=== PATIENT | male | born 2000 | race Caucasian/White ===

== ENCOUNTER 2019-10-11 15:51 | Emergency (ER) | payer MEDICARE, OTHER, MEDICAID, SELFPAY ==
[2019-10-11 16:04] VITALS: BP 138/76; PULSE 81; RESP 16; TEMP 37.2; O2SAT 100
--- NOTE | 2019-10-11 16:41 | ED.SKABFB ---
HPI - Skin/Abscess/Foreign Bdy General Chief complaint: Skin/Abscess/Foreign Body Stated complaint: Lump on back Time Seen by Provider: 10/11/19 16:30 Source: patient Mode of arrival: ambulatory Limitations: no limitations History of Present Illness HPI narrative: Sahil Solomon is a 19 yo male with no PMH who comes to the urgent care with a small lesion on his back. He has a small scab across and he is concerned about what it actually is Related Data Home Medications Medication Instructions Recorded Confirmed No Home Medications 10/11/19 10/11/19 Allergies Allergy/AdvReac Type Severity Reaction Status Date / Time No Known Allergies Allergy Verified 10/11/19 15:57 Review of Systems Review of Systems: Narrative: CONSTITUTIONAL: Denies fever, chills, sweats. EYES: Denies visual changes, redness, discharge. ENT: Denies rhinorrhea, congestion, sore throat, otalgia. CARDIOVASCULAR: Denies chest pain, palpitations, edema. RESPIRATORY: Denies dyspnea, wheezing, cough GASTROINTESTINAL: Denies abdominal pain, nausea, vomiting, diarrhea. GENITOURINARY: Denies dysuria, hematuria, abnormal discharge SKIN: Denies rash or itching. Lesion in middle of back NEUROLOGIC: Denies numbness, or focal weakness. PSYCHIATRIC: Denies anxiety or depression. [facility] Family History Family History (Updated 10/11/19 @ 16:43 by Viviana Chavarria CNP) Other No active medical problems Social History Social History (Updated 10/11/19 @ 16:43 by Viviana Chavarria CNP) Smoking status: Current every day smoker Occupation/Education: occupation Gender identity (if verbalized by the patient): Male Comments At time of signature, I agree with nursing past medical, surgical, social and family history. There is no relevant family history pertinent to the presenting complaint. Exam Narrative: Exam Narrative: GENERAL: This is a well-nourished, well-developed patient, in no apparent distress. HEAD: normocephalic, atraumatic. EYES: PERRL. Sclera clear/white. Vision is grossly intact. EARS: External ears normal. Hearing grossly intact. NOSE: External nose normal with no obvious nasal discharge, nares without redness, no rhinorrhea. THROAT: Mucous membranes moist, posterior pharynx clear. NECK: Neck supple, non-tender CARDIOVASCULAR: Regular rate and rhythm without murmurs, gallops, or rubs. RESPIRATORY: Clear to auscultation. Breath sounds equal bilaterally. No wheezes, rales, or rhonchi. GASTROINTESTINAL: Abdomen soft, non-tender, SKIN: warm, intact with no suspicious lesions or rash, good texture and turgor. Small lesion with with scab on top but mildly reddened NEURO: awake, alert, and oriented to person, place and time. There were no obvious focal neurologic abnormalities. Steady gait EXTREMITIES: Normal range of motion. No edema. BACK: Nontender without deformity or crepitance. No flank tenderness. Course Course Emergency Course: Neomycin and Band-Aid placed over lesion; discussed keeping it clean Vital Signs Vital signs: Vital Signs Temperature 99.0 F 10/11/19 16:04 Pulse Rate 81 10/11/19 16:04 Respiratory Rate 16 10/11/19 16:04 Blood Pressure 138/76 10/11/19 16:04 Pulse Oximetry 100 10/11/19 16:04 Temperature 99.0 F 10/11/19 16:04 Pulse Rate 81 10/11/19 16:04 Respiratory Rate 16 10/11/19 16:04 Blood Pressure 138/76 10/11/19 16:04 Pulse Oximetry 100 10/11/19 16:04 MDM - Skin/Abscess/Foreign Bdy Differential Diagnosis Differential diagnosis: Likely abscess of skin or subcutaneous tissue, cellulitis, eczema, contact dermatitis and other Discharge Plan Discharge Clinical Impression: Skin lesion, Skin lesion of back Patient Disposition: Home, Self-Care Condition: Stable Instructions: Abrasion (ED) Prescriptions: No Action No Home Medications RF: 0 Follow-up/Referrals: UNKNOWN,DOCTOR [Primary Care Provider] - Time of Disposition: 16:47
== END 2019-10-11 16:59 | disposition home or self-care (01) ==
PROVIDERS: Emergency Provider Nurse Practitioner
DX: L98.9 Disorder of the skin and subcutaneous tissue, unspecified (principal); F17.200 Nicotine dependence, unspecified, uncomplicated; F84.0 Autistic disorder
CPT/HCPCS: 99211; G0463

== ENCOUNTER 2019-10-31 08:18 | Emergency (ER) | payer MEDICARE, OTHER, MEDICAID, SELFPAY ==
[2019-10-31 08:35] VITALS: BP 122/68; PULSE 75; RESP 18; TEMP 36.3; O2SAT 100
--- NOTE | 2019-10-31 08:35 | ED.ABDPAIN ---
HPI - Abdominal Pain General Chief Complaint: Abdominal Pain Stated Complaint: abd pain Time Seen by Provider: 10/31/19 08:35 Source: patient and RN notes reviewed History of Present Illness HPI narrative: Patient is a 19-year-old male that presents the urgent care with complaints of possible umbilical hernia and abdominal pain. Patient states that he does a lot of heavy lifting at work and believes that he caused the hernia within the last few days. Patient states he woke up this morning with the abdominal pain. States that he does have a history of umbilical hernias and has had approximately 3 operations in the past with the last one being 1 year ago. Patient denies any nausea, vomiting, difficulty with bowel or bladder. No other acute complaints. No acute distress noted. Patient read the plan of care. Related Data Home Medications Medication Instructions Recorded Confirmed No Home Medications 10/31/19 10/31/19 Allergies Allergy/AdvReac Type Severity Reaction Status Date / Time No Known Allergies Allergy Verified 10/31/19 08:40 Review of Systems Review of Systems: Narrative: CONSTITUTIONAL: Denies fever, chills, or sweats. EYES: Denies visual changes, redness, or discharge. ENT: Denies rhinorrhea, congestion, sore throat, or otalgia. CARDIOVASCULAR: Denies chest pain, palpitations, or edema. RESPIRATORY: Denies cough or dyspnea. GASTROINTESTINAL: Reports of a possible abdominal hernia with pain GENITOURINARY: Denies dysuria or hematuria. SKIN: Denies rash or itching. MUSCULOSKELETAL: Denies back pain, joint pain, or myalgia. NEUROLOGIC: Denies headache, numbness, or weakness. All other systems reviewed are negative, except as documented in HPI. PMFSH Family History Family History (Updated 10/11/19 @ 16:43 by Viviana Chavarria CNP) Other No active medical problems Social History Social History (Updated 10/11/19 @ 16:43 by Viviana Chavarria CNP) Smoking status: Current every day smoker Gender identity (if verbalized by the patient): Male Comments At the time of my signature, I reviewed and agree with the nursing past medical, surgical, social, and family history. There is no relevant family history pertinent to the patient complaint. Exam Narrative: Exam Narrative: GENERAL: This is a well-nourished, well-developed patient, in no apparent distress. HEAD: normocephalic, atraumatic. EYES: PERRL. Sclera clear/white. Vision is grossly intact. EARS: External ears normal NOSE: External nose normal with no obvious nasal discharge THROAT: Mucous membranes moist NECK: Neck supple CARDIOVASCULAR: Regular rate and rhythm without murmurs, gallops, or rubs. RESPIRATORY: Clear to auscultation. Breath sounds equal bilaterally. No wheezes, rales, or rhonchi. GASTROINTESTINAL: Abdomen soft, point tenderness to noted umbilical hernia approximately 3 cm to the surface, nondistended. Bowel sounds are active. SKIN: warm, intact with no suspicious lesions or rash, good texture and turgor. NEURO: awake, alert, and oriented to person, place and time. There were no obvious focal neurologic abnormalities. EXTREMITIES: No clubbing, cyanosis, or edema. No joint tenderness, effusion, or edema noted. No calf tenderness. Negative Homans sign bilaterally. BACK: Mild right lumbar tenderness without obvious deformity or crepitus Course Vital Signs Vital signs: Vital Signs Temperature 97.3 F L 10/31/19 08:35 Pulse Rate 75 10/31/19 08:35 Respiratory Rate 18 10/31/19 08:35 Blood Pressure 122/68 10/31/19 08:35 Pulse Oximetry 100 10/31/19 08:35 Temperature 97.3 F L 10/31/19 08:35 Pulse Rate 75 10/31/19 08:35 Respiratory Rate 18 10/31/19 08:35 Blood Pressure 122/68 10/31/19 08:35 Pulse Oximetry 100 10/31/19 08:35 Reviewed MDM - Abdominal Pain MDM Narrative Medical decision making narrative: Advised the patient to avoid heavy lifting, pushing, pulling, strenuous activity. If you develop any inc
--- NOTE | 2019-10-31 08:48 | PC.NURSE ---
0834: Pt states he is still able to have normal BM's and is urinating well.
== END 2019-10-31 08:56 | disposition home or self-care (01) ==
PROVIDERS: Emergency Provider Nurse Practitioner Family
DX: K42.9 Umbilical hernia without obstruction or gangrene (principal); F17.200 Nicotine dependence, unspecified, uncomplicated; F84.0 Autistic disorder
CPT/HCPCS: 99211; G0463

== ENCOUNTER 2019-11-09 08:48 | Emergency (ER) | payer MEDICARE, OTHER, MEDICAID, SELFPAY ==
--- NOTE | 2019-11-09 08:54 | ED.GENADULT ---
HPI - General Adult General Chief complaint: Upper Respiratory Infection Stated complaint: sinus/stuffy nose/cough Time Seen by Provider: 11/09/19 08:54 Source: patient Mode of arrival: ambulatory Limitations: no limitations History of Present Illness HPI narrative: 19-year-old male patient presents to the [facility] with complaints of cold symptoms x2 days. Denies any fever but states he has had a runny nose, postnasal drip and cough with some yellow sputum at times. Patient denies any chest pain, shortness of breath, abdominal pain, nausea, vomiting or diarrhea. Patient states he has tried some Mucinex. Patient states he is here today because his employer is requiring an work note for him. Related Data Home Medications Medication Instructions Recorded Confirmed No Home Medications 10/31/19 10/31/19 Allergies Allergy/AdvReac Type Severity Reaction Status Date / Time No Known Allergies Allergy Verified 11/09/19 09:09 Review of Systems Review of Systems: Narrative: CONSTITUTIONAL: Denies fever, chills, or sweats. EYES: Denies visual changes, redness, or discharge. ENT: Positive rhinorrhea, congestion, denies sore throat, or otalgia. CARDIOVASCULAR: Denies chest pain, palpitations, or edema. RESPIRATORY: Positive cough denies dyspnea. GASTROINTESTINAL: Denies abdominal pain, nausea, vomiting, or diarrhea. GENITOURINARY: Denies dysuria or hematuria. SKIN: Denies rash or itching. MUSCULOSKELETAL: Denies back pain, joint pain, or myalgia. NEUROLOGIC: Denies headache, numbness, or weakness. PSYCHIATRIC: Denies anxiety or depression. [facility] Family History Family History Other No active medical problems Social History Social History Smoking status: Current every day smoker Gender identity (if verbalized by the patient): Male Comments At the time of my signature I agree with nursing past medical history, surgical, social, and family history. There is no relevant family history pertinent to the presenting complaint. Exam Narrative: Exam Narrative: GENERAL: Well-appearing, well-nourished, and in no acute distress. HEAD: Normocephalic, atraumatic. No tenderness noted to frontal maxillary sinuses on palpation EYES: PERRLA and EOMI. ENT: Nares with erythema and edema noted bilaterally, no rhinorrhea or epistaxis. Mucous membranes moist. Posterior pharynx with no erythema, tonsil enlargement, exudates or lesions present. Bilateral TMs are clear with no erythema or foreign bodies in the canal. NECK: Supple. No lymphadenopathy CHEST: Clear to auscultation. No respiratory distress. Patient able talk in clear complete sentences. No tripoding noted. HEART: Regular rate and rhythm. No murmur heard. Normal peripheral pulses. ABDOMEN: Soft, nontender, nondistended, normal active bowel sounds. EXTREMITIES: Normal range of motion. No edema. SKIN: Warm, dry, no rash. NEURO: No focal deficits. Alert and oriented x3. Course Vital Signs Vital signs: Vital Signs Temperature 36.8 C 11/09/19 09:00 Pulse Rate 93 11/09/19 09:00 Respiratory Rate 18 11/09/19 09:00 Blood Pressure 108/66 11/09/19 09:00 Pulse Oximetry 99 11/09/19 09:00 Temperature 36.8 C 11/09/19 09:00 Pulse Rate 93 11/09/19 09:00 Respiratory Rate 18 11/09/19 09:00 Blood Pressure 108/66 11/09/19 09:00 Pulse Oximetry 99 11/09/19 09:00 Vital signs reviewed. Medical Decision Making Differential Diagnosis Differential Diagnosis: Differential diagnosis: Allergic rhinitis, chronic sinusitis, tonsillitis, acute sinusitis, infectious mononucleosis, seasonal influenza, pertussis, diphtheria, meningococcal disease, viral syndrome, viral bronchitis, RSV. Discussed with patient that this is most likely some type of virus and he can continue to treat his symptoms symptomatically and if he does develop fevers he can treat it with
[2019-11-09 09:00] VITALS: BP 108/66; PULSE 93; RESP 18; TEMP 36.8; O2SAT 99
== END 2019-11-09 09:18 | disposition home or self-care (01) ==
PROVIDERS: Emergency Provider Nurse Practitioner Family
DX: J06.9 Acute upper respiratory infection, unspecified (principal); R05 Cough; F17.200 Nicotine dependence, unspecified, uncomplicated; F84.0 Autistic disorder
CPT/HCPCS: 99211; G0463

== ENCOUNTER 2020-03-01 12:56 | Emergency (ER) | payer MEDICARE, OTHER, MEDICAID, SELFPAY ==
--- NOTE | ~2020-03-01 | XR_ITS ---
EXAMINATION: XR chest 2V 03/01/2020 13:25 INDICATION: Chest pain PROCEDURE: 2 view chest COMPARISON: No prior studies for comparison. FINDINGS: The lungs are clear. The cardiomediastinal silhouette is within normal limits. There are no pleural effusions. There is no pneumothorax suspected. IMPRESSION: 1: NO ACUTE CARDIOPULMONARY DISEASE. Reviewed, dictated and finalized at location B.
[2020-03-01 13:03] VITALS: BP 108/61; PULSE 78; RESP 18; TEMP 36.8; O2SAT 100
--- NOTE | 2020-03-01 13:06 | ECG_ITS ---
Measurements Intervals [place] Rate: 80 P: 61 NV: 119 QRS: 66 QRSD: 90 T: 42 QT: 350 QTc: 404 Interpretive Statements SINUS RHYTHM MINIMAL Q WAVES- INF/LAT LEADS BASELINE ARTIFACT- I, II, III, AVR, AVL, AVF, V1 BORDERLINE ECG Electronically Signed On 03-01-2020 13:30:58 CDT by Yair Danielson D.O.
[2020-03-01 13:20] LABS: Basophils Percent Auto 0.4 % (0.2-1.2); Eosinophils Absolute Auto 0.1 K/mm3 (0-0.3); Eosinophils Percent Auto 1.7 % (0-4.4); Hematocrit 49.5 % (42.0-52.0); Hemoglobin 16.6 g/dL (14.0-18.0); Immature Granulocyte Absolute 0.01 K/mm3 (0.00-0.031); Immature Granulocyte Percent A 0.2 % (0-0.5); Lymphocytes Absolute Auto 1.79 K/mm3 (0.9-3.2); Lymphocytes Percent Auto 33.6 % (18.3-44.2); Mean Corpuscular HGB Conc 33.5 g/dl (32-36); Mean Corpuscular Hemoglobin 28.8 pg (26-34); Mean Corpuscular Volume 85.8 fl (80-100); Mean Platelet Volume 10.1 fl (7.4-10.4); Monocytes Absolute Auto 0.5 K/mm3 (0.1-0.6); Monocytes Percent Auto 8.5 % (2.6-8.5); Neutrophils Percent Auto 55.6 % (45.5-73.1); Platelet Count Result 310 k/mm3 (150-375); Red Blood Count 5.77 M/mm3 (4.6-6.20); Red Cell Distribution Width 12.9 % (11.5-14.5); White Blood Count 5.3 K/mm3 (4.5-10.0)
[2020-03-01 13:29] LABS: INR 1.1; Prothrombin Time 13.4 Seconds (11.1-14.7)
[2020-03-01 13:30] LABS: Partial Thromboplastin Time 29.2 SECONDS (22.3-36.8)
[2020-03-01 13:31] LABS: Blood Urea Nitrogen 13 mg/dL (9-20); Calcium 9.4 mg/dL (8.4-10.2); Carbon Dioxide 27 mmol/L (22-30); Chloride 102 mmol/L (98-107); Estimated CRCL calculation 119 ml/min; Estimated Glomerular Filt Rate > 60; Glucose 85 mg/dL (75-110); Potassium 4.1 mmol/L (3.4-5.0); Sodium 138 mmol/L (137-145)
[2020-03-01 13:43] LABS: Troponin I < 0.012 ng/mL (0.000-0.034)
[2020-03-01 14:13] VITALS: PULSE 74
[2020-03-01] MEDS: ASPIRIN 81 MG CHEWABLE TABLET 324 MG PO (14:20)
--- NOTE | 2020-03-01 15:10 | ED.CHESTPAIN ---
HPI - Chest Pain General Chief Complaint: Chest Pain Stated Complaint: chest pain Time Seen by Provider: 03/01/20 14:59 Source: patient Mode of arrival: ambulatory Limitations: no limitations History of Present Illness HPI narrative: This is a 20-year-old male that presents the emergency department for chest pain that started this morning. Reports he woke up with some left-sided aching chest pain. Reports this lasted for about 40 minutes is was relieved without intervention. Denies any current chest pain. Denies fever, cough, shortness of breath. Related Data Home Medications Medication Instructions Recorded Confirmed No Home Medications 03/01/20 03/01/20 Allergies Allergy/AdvReac Type Severity Reaction Status Date / Time No Known Allergies Allergy Verified 03/01/20 13:25 Review of Systems Review of Systems: Narrative: CONSTITUTIONAL: Denies fever CARDIOVASCULAR: Reports chest pain RESPIRATORY: Denies cough or dyspnea. All systems reviewed & are unremarkable except as noted in HPI and below PMFSH Past Medical History Medical History (Updated 03/01/20 @ 16:54 by Evelyn Che PA-C) No active medical problems Social History Social History Smoking status: Current every day smoker Gender identity (if verbalized by the patient): Male Exam Narrative: Exam Narrative: GENERAL: Well-appearing, well-nourished, and in no acute distress. HEAD: Normocephalic, atraumatic. EYES: EOMI. NECK: Supple. No adenopathy or masses. No carotid bruits or JVD CHEST: Clear to auscultation. No respiratory distress. No wheezes rales or rhonchi HEART: Regular rate and rhythm. No murmur heard. Normal peripheral pulses. EXTREMITIES: Normal range of motion. No edema. SKIN: Warm, dry, no rash. NEURO: No focal deficits. Alert and oriented x3. PSYCH: Normal mood and affect Course Vital Signs Vital signs: Vital Signs Temperature 98.3 F 03/01/20 13:03 Pulse Rate 78 03/01/20 13:03 Respiratory Rate 18 03/01/20 13:03 Blood Pressure 108/61 03/01/20 13:03 Pulse Oximetry 100 03/01/20 13:03 Temperature 98.3 F 03/01/20 13:03 Pulse Rate 64 03/01/20 16:41 Respiratory Rate 16 03/01/20 16:41 Blood Pressure 103/67 03/01/20 16:41 Pulse Oximetry 99 03/01/20 16:41 MDM - Chest Pain MDM Narrative Medical decision making narrative: Patient presents the emergency department for an episode of chest pain this morning. Has not had any chest pain while in the ED. Vitals are normal. Heart score is 1. CBC and metabolic panel without concerning findings. EKG with nonspecific ST changes. Baseline troponin is not elevated. Chest x-ray without acute findings. Patient did not want to stay for 3-hour troponin. Is stable and felt appropriate for the outpatient evaluation was instructed to follow-up with his primary care doctor. Was given warnings to return to the ER Lab Data Attestation: I reviewed the patient's lab results. Result diagrams: 03/01/20 13:11 03/01/20 13:11 Labs: Lab Results 03/01/20 03/01/20 03/01/20 Range/Units 13:11 13:11 13:11 WBC 5.3 (4.5-10.0) K/mm3 RBC 5.77 (4.6-6.20) M/mm3 Hgb 16.6 (14.0-18.0) g/dL Hct 49.5 (42.0-52.0) % MCV 85.8 (80-100) fl MCH 28.8 (26-34) pg MCHC 33.5 (32-36) g/dl RDW 12.9 (11.5-14.5) % Plt Count 310 (150-375) k/mm3 MPV 10.1 (7.4-10.4) fl Immature Gran % (Auto) 0.2 (0-0.5) % Neut % (Auto) 55.6 (45.5-73.1) % Lymph % (Auto) 33.6 (18.3-44.2) % [place] % (Auto) 8.5 (2.6-8.5) % Eos % (Auto) 1.7 (0-4.4) % Baso % (Auto) 0.4 (0.2-1.2) % Lymph # (Auto) 1.79 (0.9-3.2) K/mm3 [place] # (Auto) 0.5 (0.1-0.6) K/mm3 Eos # (Auto) 0.1 (0-0.3) K/mm3 Baso # (Auto) 0.0 (0.0-0.1) K/mm3 Abs Immat Gran (auto) 0.01 (0.00-0.031) K/mm3 Absolute Neuts (auto) 3.0 (1.3-6.7) K/mm3 Absolute Nucleate
[2020-03-01 16:41] VITALS: BP 103/67; PULSE 64; RESP 16; O2SAT 99
[2020-03-01 17:15] VITALS: BP 102/60; PULSE 72; RESP 16; O2SAT 100
== END 2020-03-01 17:15 | disposition home or self-care (01) ==
PROVIDERS: Emergency Provider Emergency Medicine
DX: R07.9 Chest pain, unspecified (principal); R00.0 Tachycardia, unspecified; F17.210 Nicotine dependence, cigarettes, uncomplicated
CPT/HCPCS: 36415; 71046; 80048; 84484; 85025; 85610; 85730; 93005; 99284; A9270

== ENCOUNTER 2020-04-06 11:55 | Emergency (ER) | payer MEDICARE, MEDICAID, SELFPAY ==
--- NOTE | 2020-04-06 12:07 | ED.GENADULT ---
HPI - General Adult General Chief complaint: Back Pain/Injury Stated complaint: Back Pain Time Seen by Provider: 04/06/20 12:26 Source: patient Mode of arrival: ambulatory Limitations: no limitations History of Present Illness HPI narrative: 20-year-old male patient presents to the [facility] with complaints of low back pain for the past 3 days. Denies any specific injury to the back that he can remember. 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 Patient states he has been taking 600 mg ibuprofen as well as Tylenol at times and using ice to the lower back. Patient denies any numbness or tingling to the lower extremities. Denies any loss of bowel or bladder control. Related Data Allergies Allergy/AdvReac Type Severity Reaction Status Date / Time No Known Allergies Allergy Verified 03/01/20 13:25 Review of Systems Review of Systems: Narrative: CONSTITUTIONAL: Denies fever, chills, or sweats. EYES: Denies visual changes, redness, or discharge. ENT: Denies rhinorrhea, congestion, sore throat, or otalgia. CARDIOVASCULAR: Denies chest pain, palpitations, or edema. RESPIRATORY: Denies cough or dyspnea. GASTROINTESTINAL: Denies abdominal pain, nausea, vomiting, or diarrhea. GENITOURINARY: Denies dysuria or hematuria. SKIN: Denies rash or itching. MUSCULOSKELETAL: Positive low back pain, denies joint pain, or myalgia. NEUROLOGIC: Denies headache, numbness, or weakness. PSYCHIATRIC: Denies anxiety or depression. [facility] Past Medical History Medical History (Updated 04/06/20 @ 12:31 by DOTTY Morrow) ADHD Anxiety Depression No active medical problems Previous known suicide attempt Social History Social History Smoking status: Current every day smoker Gender identity (if verbalized by the patient): Male Comments At the time of my signature I agree with nursing past medical history, surgical, social, and family history. There is no relevant family history pertinent to the presenting complaint. Exam Narrative: Exam Narrative: GENERAL: Well-appearing, well-nourished, and in no acute distress. HEAD: Normocephalic, atraumatic. EYES: PERRLA and EOMI. ENT: Nares clear, no rhinorrhea or epistaxis. Mucous membranes moist. NECK: Supple. No lymphadenopathy CHEST: Clear to auscultation. No respiratory distress. HEART: Regular rate and rhythm. No murmur heard. Normal peripheral pulses. ABDOMEN: Soft, nontender, nondistended, normal active bowel sounds. EXTREMITIES: Normal range of motion. No edema. BACK: Patient is able to ambulated without assistance. Pt is seated on the stretcher in no obvouis distress. No surface trauma noted. No muscle tenderness to Palpation. There is a spasm noted on palpation to the right lower lumbar area on the lateral side. No step-offs or deformity noted to the cervical, thoracic or lumbar spine to firm Palpation at the midline. No CVA tenderness to percussion. No saddle anesthesia. ROM: able to stand erect. Normal flexion, extension, Lateral bending and rotation without limitation or complaint of pain. SKIN: Warm, dry, no rash. NEURO: No focal deficits. Alert and oriented x3. Course Vital Signs Vital signs: Vital Signs Temperature 36.4 C L 04/06/20 12:15 Pulse Rate 78 04/06/20 12:15 Respiratory Rate 18 04/06/20 12:15 Blood Pressure 120/65 04/06/20 12:15 Pulse Oximetry 99 04/06/20 12:15 Temperature 36.4 C L 04/06/20 12:15 Pulse Rate 78 04/06/20 12:15 Respiratory Rate 18 04/06/20 12:15 Blood Pressure 120/65 04/06/20 12:15 Pulse Oximetry 99 04/06/20 12:15 Vital signs reviewed. Medical Decision Making Differential Diagnosis Differential Diagnosis: Differential diagnosis:Acute musculoskeletal injury or exacerbation, neurological emergency, acute coronary syndrome, kidney stones, epidural abscess or hematoma,Cauda Equina Syndrome, herniation. Discussed with patient [place]
[2020-04-06 12:15] VITALS: BP 120/65; PULSE 78; RESP 18; TEMP 36.4; O2SAT 99
== END 2020-04-06 12:35 | disposition home or self-care (01) ==
PROVIDERS: Emergency Provider Nurse Practitioner Family
DX: M62.830 Muscle spasm of back (principal); S39.012A Strain of muscle, fascia and tendon of lower back, initial encounter; X58.XXXA Exposure to other specified factors, initial encounter
CPT/HCPCS: 99213; G0463

== ENCOUNTER 2021-08-15 11:13 | Emergency (ER) | payer MEDICARE, OTHER, MEDICAID, SELFPAY ==
[2021-08-15 11:26] VITALS: BP 103/61; PULSE 79; RESP 16; TEMP 36.6; O2SAT 99
--- NOTE | 2021-08-15 11:33 | ED.FEVER ---
HPI - Fever General Chief Complaint: Fever Stated Complaint: Fever Time Seen by Provider: 08/15/21 11:33 Source: patient Mode of arrival: ambulatory History of Present Illness HPI Narrative: Sahil Solomon is a 21 yo male with subjective fever- feels like vision is narrow - no other symptoms Related Data Home Medications Medication Instructions Recorded Confirmed No Home Medications 08/15/21 08/15/21 Allergies Allergy/AdvReac Type Severity Reaction Status Date / Time No Known Allergies Allergy Verified 03/01/20 13:25 Review of Systems Review of Systems: CONSTITUTIONAL: Subjective fever, chills, sweats. EYES: Denies visual changes, redness, discharge. ENT: Denies rhinorrhea, congestion, sore throat, otalgia. CARDIOVASCULAR: Denies chest pain, palpitations, edema. RESPIRATORY: Denies dyspnea, wheezing, cough GASTROINTESTINAL: Denies abdominal pain, nausea, vomiting, diarrhea. GENITOURINARY: Denies dysuria, hematuria, abnormal discharge SKIN: Denies rash or itching. NEUROLOGIC: Denies numbness, or focal weakness. PSYCHIATRIC: Denies anxiety or depression. [facility] Past Medical History Medical History (Updated 08/15/21 @ 12:06 by Viviana Chavarria CNP) ADHD Anxiety Depression Previous known suicide attempt Family History Family History Other No active medical problems Social History Social History Smoking status: Current every day smoker Gender identity (if verbalized by the patient): Male Comments At time of signature, I agree with nursing past medical, surgical, social and family history. There is no relevant family history pertinent to the presenting complaint. Exam Narrative: GENERAL: This is a well-nourished, well-developed patient, in no distress. HEAD: normocephalic, atraumatic. EYES: PERRL. Sclera clear/white. Vision is grossly intact. EARS: External ears normal, auditory canals mild erythema and without drainage, fluid behind both TMs. Hearing grossly intact. NOSE: External nose normal without nasal discharge, nares without redness, no rhinorrhea. THROAT: Mucous membranes moist, posterior pharynx mild erythema with clear drainage NECK: Neck supple, non-tender CARDIOVASCULAR: Regular rate and rhythm without murmurs, gallops, or rubs. RESPIRATORY: Clear to auscultation. Breath sounds equal bilaterally. No wheezes, rales, or rhonchi. GASTROINTESTINAL: Abdomen soft, non-tender, SKIN: warm, intact with no suspicious lesions or rash, good texture and turgor. NEURO: awake, alert, and oriented to person, place and time. There were no obvious focal neurologic abnormalities. Steady gait EXTREMITIES: Normal range of motion. BACK: Nontender without deformity Course [employer]/PA Physician Supervision Patient states he had subjective fever with swelling this morning and felt kind of off yesterday states he is version still feels somewhat off although he has a normal vision exam He has no primary care physician He has fluid behind his TMs on exam and recommend he start taking some Zyrtec or antihistamine and if symptoms persist should follow-up with a primary care physician Vital Signs Vital signs: Vital Signs Temperature 97.9 F 08/15/21 11:26 Pulse Rate 79 08/15/21 11:26 Respiratory Rate 16 08/15/21 11:26 Blood Pressure 103/61 08/15/21 11:26 Pulse Oximetry 99 08/15/21 11:26 Temperature 97.9 F 08/15/21 11:26 Pulse Rate 79 08/15/21 11:26 Respiratory Rate 16 08/15/21 11:26 Blood Pressure 103/61 08/15/21 11:26 Pulse Oximetry 99 08/15/21 11:26 MDM - Fever Differential Diagnosis Differential diagnosis: Likely other (Viral illness versus flu versus allergies versus pharyngitis versus BPV) Critical Care Time Critical Care Time Critical Care Time: No Discharge Plan Discharge Clinical Impression: Subjective fever, Viral illness Patient Disposition
== END 2021-08-15 12:07 | disposition home or self-care (01) ==
PROVIDERS: Emergency Provider Nurse Practitioner
DX: B34.9 Viral infection, unspecified (principal)
CPT/HCPCS: 99211; G0463

== ENCOUNTER 2021-08-16 18:08 | Emergency (ER) | payer MEDICARE, MEDICAID, SELFPAY ==
[2021-08-16 18:31] VITALS: BP 118/79; PULSE 91; RESP 16; TEMP 37.4; O2SAT 99
--- NOTE | 2021-08-16 18:31 | ED.URI ---
HPI - URI/Sore Throat General Chief Complaint: Upper Respiratory Infection Stated Complaint: zaldivar/sinus pressure Time Seen by Provider: 08/16/21 18:32 Source: patient, RN notes reviewed and old records reviewed Mode of arrival: ambulatory Limitations: no limitations History of Present Illness HPI Narrative: 21-year-old male presents to the [facility] with complaints of pressure behind his eyes, 2 days of body aches and has been sweating. Patient concerned for COVID-19. Patient was seen and evaluated yesterday states that He did not fully understand the information and the information he gave us he does not feel was clear enough. Patient appears nontoxic in no acute distress Related Data Home Medications Medication Instructions Recorded Confirmed No Home Medications 08/15/21 08/16/21 Allergies Allergy/AdvReac Type Severity Reaction Status Date / Time No Known Allergies Allergy Verified 08/16/21 18:56 Review of Systems Constitutional: Constitutional: Reports as per HPI, Reports chills and Reports fatigue Eyes: Eyes: Reports as per HPI, Denies change in vision and Denies photophobia Comments: Pressure behind his eyes ENT: Reports as per HPI, Reports nasal congestion and Denies sore throat Cardiovascular: Cardiovascular: Reports no additional cardiovascular complaints Respiratory: Respiratory: Reports no additional respiratory complaints, Denies cough and Denies dyspnea Gastrointestinal: Gastrointestinal: Reports no additional gastrointestinal complaints, Denies abdominal pain, Denies nausea and Denies vomiting Musculoskeletal: Musculoskeletal: Reports as per HPI and Reports myalgias Integumentary/Breasts: Skin/Breast: Reports system reviewed and no additional complaints, except as docu Neurologic: Reports system reviewed and no additional complaints, except as documented Psychiatric: Psychiatric: Reports no additional psychiatric complaints Allergic/Immunologic: Allergic/Immunologic: Reports no additional allergic/immunologic complaints [facility] Past Medical History Medical History ADHD Anxiety Depression Previous known suicide attempt Family History Family History Other No active medical problems Social History Social History Smoking status: Current every day smoker Gender identity (if verbalized by the patient): Male Comments At the time of my signature, I reviewed and agree with the nursing past medical, surgical, social, and family history. There is no relevant family history pertinent to the patient complaint. Exam Const: General: healthy appearing, no acute distress and alert Nutritional Appearance: well nourished Orientation/consciousness: patient oriented x3 HENMT: Head: normal to inspection Ears: external ears normal, TM's normal bilaterally and EAC's normal Eyes: Conjunctivae: conjunctivae normal Pupils: Equal, round and reactive pupils present Neck: Neck: normal visual inspection, no lymphadenopathy and no meningeal signs Chest: Chest palpation & inspection: normal inspection of the chest Resp: Effort & Inspection: normal respiratory effort and no use of accessory muscles Auscultation: clear to auscultation bilaterally, no crackles, no rales, no rhonchi and no wheezes Cardio: Rate: regular rate Rhythm: regular rhythm Back/Spine/Pelvis: Back: no CVA tenderness Skin: General skin exam: normal color Rashes: no rashes Wounds: no wounds Neuro: General: patient oriented x3, moves all extremities, no meningeal signs and no focal motor deficits Speech: normal speech Gait exam (Neuro): Normal gait present Extrem: General: normal to inspection Psych: Appearance: grossly normal and well kempt Mental Status: mental status grossly normal Affect: normal affect Attitude: cooperative Thought content: Yes Normal thought content pr
== END 2021-08-16 19:20 | disposition home or self-care (01) ==
PROVIDERS: Emergency Provider Nurse Practitioner
DX: J06.9 Acute upper respiratory infection, unspecified (principal); Z20.822 Contact with and (suspected) exposure to COVID-19; F17.200 Nicotine dependence, unspecified, uncomplicated
CPT/HCPCS: 87804; 99213; G0463

== ENCOUNTER 2021-11-28 12:15 | Emergency (ER) | payer MEDICARE, OTHER, SELFPAY ==
[2021-11-28 12:41] VITALS: BP 109/70; PULSE 80; RESP 16; TEMP 36.6; O2SAT 100
--- NOTE | 2021-11-28 12:53 | ED.URI ---
HPI - URI/Sore Throat General Chief Complaint: Upper Respiratory Infection Stated Complaint: Sore Throat Time Seen by Provider: 11/28/21 12:54 Source: patient Mode of arrival: ambulatory Limitations: no limitations History of Present Illness HPI Narrative: 21-year-old male woke up this morning with nasal congestion, postnasal drainage, sore throat, dry cough. Was outside yesterday. It was a warm and windy. States no history of seasonal allergies or sinusitis. He denies body aches, chills, fever. He denies nausea vomiting diarrhea. All systems reviewed and negative except as noted above. Related Data Allergies Allergy/AdvReac Type Severity Reaction Status Date / Time No Known Allergies Allergy Verified 11/28/21 12:46 Review of Systems Review of Systems: CONSTITUTIONAL: Denies fever, chills, or sweats. EYES: Denies visual changes, redness, or discharge. ENT: Reports rhinorrhea, congestion, sore throat. Denies otalgia. CARDIOVASCULAR: Denies chest pain, palpitations, or edema. RESPIRATORY: Reports cough. Denies dyspnea. GASTROINTESTINAL: Denies abdominal pain, nausea, vomiting, or diarrhea. GENITOURINARY: Denies dysuria or hematuria. SKIN: Denies rash or itching. MUSCULOSKELETAL: Denies back pain, joint pain, or myalgia. NEUROLOGIC: Denies headache, numbness, or weakness. PSYCHIATRIC: Denies anxiety or depression. All other systems reviewed are negative, except as documented in HPI. PMFSH Past Medical History Medical History ADHD Anxiety Depression Previous known suicide attempt Family History Family History Other No active medical problems Social History Social History Smoking status: Current every day smoker Gender identity (if verbalized by the patient): Male Comments At time of signature, agree with nursing past medical, surgical, social and family history. There is no relevant family history pertinent to the presenting complaint. Exam Narrative: GENERAL: This is a well-nourished, well-developed patient, in no apparent distress. HEAD: normocephalic, atraumatic. EYES: PERRL. Sclera clear/white. Vision is grossly intact. EARS: External ears normal, auditory canals clear and without drainage, TMs normal without perforation. Hearing grossly intact. NOSE: External nose normal with clear nasal drainage. THROAT: Mucous membranes moist, posterior pharynx clear postnasal drainage. NECK: Neck supple, non-tender without lymphadenopathy, masses or thyromegaly. CARDIOVASCULAR: Regular rate and rhythm without murmurs, gallops, or rubs. RESPIRATORY: Clear to auscultation. Breath sounds equal bilaterally. No wheezes, rales, or rhonchi. SKIN: warm, Dry, intact with no suspicious lesions or rash, good texture and turgor. NEURO: awake, alert, and oriented to person, place and time. There were no obvious focal neurologic abnormalities. EXTREMITIES: Normal range of motion to all extremities. Course Course Level of Care: Express Care Visit Vital Signs Vital signs: Vital Signs Temperature 36.6 C 11/28/21 12:41 Pulse Rate 80 11/28/21 12:41 Respiratory Rate 16 11/28/21 12:41 Blood Pressure 109/70 11/28/21 12:41 Pulse Oximetry 100 11/28/21 12:41 Temperature 36.6 C 11/28/21 12:41 Pulse Rate 80 11/28/21 12:41 Respiratory Rate 16 11/28/21 12:41 Blood Pressure 109/70 11/28/21 12:41 Pulse Oximetry 100 11/28/21 12:41 Reviewed MDM - URI/Sore Throat MDM Narrative Medical decision making narrative: Patient is aware of diagnosis, understands and agrees to treatment plan. Anticipatory guidance given. Patient agrees to follow-up as directed and is aware of reasons to seek care at the emergency department. Portions of this record may have been created with voice recognition software Differential Diagnosis Differential diagnosis
== END 2021-11-28 13:13 | disposition home or self-care (01) ==
PROVIDERS: Emergency Provider Nurse Practitioner Family
DX: J01.90 Acute sinusitis, unspecified (principal); J30.2 Other seasonal allergic rhinitis
CPT/HCPCS: 99213; G0463

== ENCOUNTER 2022-03-07 17:23 | Emergency (ER) | payer MEDICARE, OTHER, SELFPAY ==
[2022-03-07 17:35] VITALS: BP 113/60; PULSE 73; RESP 18; TEMP 36.3; O2SAT 99
--- NOTE | 2022-03-07 17:45 | ED.GENADULT ---
HPI - General Adult General Chief complaint: Upper Respiratory Infection Stated complaint: Headache,Cough Time Seen by Provider: 03/07/22 17:36 Source: patient Mode of arrival: ambulatory Limitations: no limitations History of Present Illness HPI narrative: Patient presents today complaining of pain in the bilateral jaw area x4 days. Denies known clenching or grinding of the teeth. Denies tooth pain. He also complains of a frontal headache since this morning. He has not tried any interventions for either complaint prior to arrival. Denies history of migraines. Denies any additional symptoms to include nausea, vomiting, dizziness, vision changes, photophobia, recent illness. Related Data Home Medications Medication Instructions Recorded Confirmed No Home Medications 03/07/22 03/07/22 Allergies Allergy/AdvReac Type Severity Reaction Status Date / Time No Known Allergies Allergy Verified 03/07/22 17:26 Review of Systems Review of Systems: CONSTITUTIONAL: Denies body aches, fever, chills, or sweats. EYES: Denies visual changes, redness, or discharge. ENT: Denies rhinorrhea, congestion, sore throat, or otalgia.+ Bilateral jaw pain CARDIOVASCULAR: Denies chest pain, palpitations, or edema. RESPIRATORY: Denies cough or dyspnea. GASTROINTESTINAL: Denies abdominal pain, nausea, vomiting, or diarrhea. GENITOURINARY: Denies dysuria or hematuria. SKIN: Denies rash, itching, or wounds. MUSCULOSKELETAL: Denies back pain, joint pain, or myalgia. NEUROLOGIC: Denies numbness, tingling, or weakness.+ Headache PSYCH: Denies depression or anxiety. [facility] Past Medical History Medical History ADHD Anxiety Depression Previous known suicide attempt Family History Family History Other No active medical problems Social History Social History Smoking status: Current every day smoker Gender identity (if verbalized by the patient): Male Comments At time of signature, I have reviewed and agree with nursing past medical, surgical, social and family history unless otherwise noted. Please see nursing chart for further information. There is no relevant family history pertinent to the presenting complaint Exam Narrative: GENERAL: Well-appearing, well-nourished, and in no acute distress. HEAD: Normocephalic, atraumatic. EYES: EOMI. PERRL. No redness or drainage. Conjunctivae normal. ENT: Mucous membranes pink and moist. Tenderness to the bilateral temporomandibular joints. No crepitus noted with movement of the jaw. Full AROM of the mandible. NECK: Normal AROM. CHEST: No respiratory distress. EXTREMITIES: Normal range of motion. No edema. SKIN: Warm, dry, no rash. Capillary refill normal. Normal skin turgor. NEURO: No focal deficits. Alert and oriented x3. Gait steady. PSYCH: Normal affect. No signs of depression or anxiety. Course Course Level of Care: Express Care Visit Vital Signs Vital signs: Vital Signs Temperature 97.3 F L 03/07/22 17:35 Pulse Rate 73 03/07/22 17:35 Respiratory Rate 18 03/07/22 17:35 Blood Pressure 113/60 03/07/22 17:35 Pulse Oximetry 99 03/07/22 17:35 Oxygen Delivery Room Air 03/07/22 17:35 Temperature 97.3 F L 03/07/22 17:35 Pulse Rate 73 03/07/22 17:35 Respiratory Rate 18 03/07/22 17:35 Blood Pressure 113/60 03/07/22 17:35 Pulse Oximetry 99 03/07/22 17:35 Oxygen Delivery Room Air 03/07/22 17:35 Reviewed Medical Decision Making Differential Diagnosis Differential Diagnosis: Tension headache, migraine headache, cluster headache, temporomandibular joint pain, bruxism Vital Signs Vital Signs: Vital Signs Temperature 97.3 F L 03/07/22 17:35 Pulse Rate 73 03/07/22 17:35 Respiratory Rate 18 03/07/22 17:35 Blood Pressure 113/60 03/07/22 17:35
== END 2022-03-07 17:50 | disposition home or self-care (01) ==
PROVIDERS: Emergency Provider Nurse Practitioner
DX: M26.623 Arthralgia of bilateral temporomandibular joint (principal); R51.9 Headache, unspecified
CPT/HCPCS: 99211; G0463

== ENCOUNTER 2022-07-19 07:16 | Emergency (ER) | payer MEDICARE, OTHER, SELFPAY ==
[2022-07-19 07:25] VITALS: BP 103/62; PULSE 63; RESP 16; TEMP 36.5; O2SAT 100
--- NOTE | 2022-07-19 07:58 | ED.BACK ---
HPI - Back Pain/Injury General Chief Complaint: Back Pain/Injury Stated Complaint: BACK PAIN Time Seen by Provider: 07/19/22 07:31 Source: patient and family Mode of arrival: ambulatory Limitations: no limitations History of Present Illness HPI Narrative: Woke up this morning with pain across lumbar area, sharp and stabbing, worse with movement, better at rest, he denies any fever, chills, nausea, vomiting, urinary symptoms, radiation of pain. [place] a lot of physical activity, he should be off work for the next couple- 3 days. Patient had quite a bit of physical work including lifting and pushing 3 to 4 days ago Related Data Allergies Allergy/AdvReac Type Severity Reaction Status Date / Time No Known Allergies Allergy Verified 07/19/22 07:30 Review of Systems Review of Systems: All systems reviewed & are unremarkable except as noted in HPI and below PMFSH Past Medical History Medical History ADHD Anxiety Depression Previous known suicide attempt Family History Family History Other No active medical problems Social History Social History Smoking status: Current every day smoker Gender identity (if verbalized by the patient): Male Exam Narrative: General appearance: Well-developed, well-nourished Skin: Normal color Head: Normocephalic, nontraumatic Eyes: Clear conjunctiva ENT: Oropharynx normal, ears normal, nose normal Neck: Supple, nontender Chest and respiratory: Airway patent, no respiratory distress, no accessory muscle use Heart: Regular rate/rhythm Abdomen: Soft, nontender, no organomegaly, quiet bowel sounds Vascular: Normal peripheral pulses, normal capillary refill. Musculoskeletal: Diffuse tenderness paraspinous muscles at the lumbar area, slight limited range of motion, no bruises, no swelling, no rash Neurologic: Alert and oriented ?3, [employer] is normal as tested, no gross motor deficit Course Vital Signs Vital signs: Vital Signs Temperature 36.5 C 07/19/22 07:25 Pulse Rate 63 07/19/22 07:25 Respiratory Rate 16 07/19/22 07:25 Blood Pressure 103/62 07/19/22 07:25 Pulse Oximetry 100 07/19/22 07:25 Oxygen Delivery Room Air 07/19/22 07:25 Temperature 36.5 C 07/19/22 07:25 Pulse Rate 63 07/19/22 07:25 Respiratory Rate 16 07/19/22 07:25 Blood Pressure 103/62 07/19/22 07:25 Pulse Oximetry 100 07/19/22 07:25 Oxygen Delivery Room Air 07/19/22 07:25 Critical Care Time Critical Care Time Critical Care Time: No Discharge Plan Discharge Clinical Impression: Strain of lumbar region Patient Disposition: Home, Self-Care Condition: Stable Instructions: Antibiotic Form, Acute Low Back Pain (ED), Lower Back Exercises (ED) Additional Instructions: Return if symptoms are worsening , call your family physician for appointment, take Tylenol as as needed for aches and pain, continue home medications. Prescriptions: New cyclobenzaprine 10 mg tablet 10 mg PO TID PRN (Reason: muscle spasm) Qty: 20 0RF naproxen [Naprosyn] 500 mg tablet 500 mg PO BID PRN (Reason: pain) Qty: 14 0RF Follow-up/Referrals: PHYSICIAN,[facility] CHECKER [Primary Care Provider] -
[2022-07-19] MEDS: ACETAMINOPHEN 325 MG TABLET 650 MG PO (08:10)
[2022-07-19] MEDS: IBUPROFEN 600 MG TABLET PO (08:10)
== END 2022-07-19 08:22 | disposition home or self-care (01) ==
LOC: ANHED 08:20
PROVIDERS: Emergency Provider Emergency Medicine; PCP Emergency Medicine
DX: S39.012A Strain of muscle, fascia and tendon of lower back, initial encounter (principal); F41.9 Anxiety disorder, unspecified; F32.9 Major depressive disorder, single episode, unspecified; X50.0XXA Overexertion from strenuous movement or load, initial encounter
CPT/HCPCS: 99283; A9270

== ENCOUNTER 2023-05-27 09:45 | Emergency (ER) | payer MEDICARE, OTHER, MEDICAID, SELFPAY ==
--- NOTE | 2023-05-27 09:52 | ED.GENADULT ---
HPI - General Adult General Chief complaint: Unspecified Stated complaint: legs are painful,neck & right arm painful Time Seen by Provider: 05/27/23 09:51 Source: patient Mode of arrival: ambulatory Limitations: no limitations History of Present Illness HPI narrative: Sahil is a 23-year-old male patient presenting to the clinic today with complaints of neck pain, headache, right arm pain, and bilateral leg pain x3 days. He reports that his pain has improved however he was having pain and his bilateral thighs getting in and out of his truck. 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 Does not feel as though he was dehydrated over the course of his symptoms. He has recently just moved here and does not have a PCP. He denies any fever, chills, or sore throat. He denies any chest pain or shortness of breath. No known exposure to anyone with COVID, flu, or strep. Denies any urinary symptoms Related Data Allergies Allergy/AdvReac Type Severity Reaction Status Date / Time No Known Allergies Allergy Verified 05/27/23 09:59 Review of Systems Review of Systems: Pertinent positives per HPI. Patient denies any fever, chills, rash, headache, visual changes, dizziness, cough, runny nose, sore throat, shortness of breath, chest pain, palpitations, nausea, vomiting, diarrhea, constipation, abdominal pain, or any urinary issues. PMFSH Past Medical History Medical History ADHD Anxiety Depression Previous known suicide attempt Family History Family History Other No active medical problems Social History Social History Smoking status: Current every day smoker Occupation/Education: occupation Gender identity (if verbalized by the patient): Male Comments At the time of my signature, I reviewed and agree with the nursing past medical, surgical, social, and family history. There is no relevant family history pertinent to the patient complaint. Exam Narrative: General: Well-developed, well nourished, in no apparent distress Head: Normocephalic, atraumatic Eyes: Pupils equally round and reactive to light bilaterally, EOM intact, sclera and conjunctive clear, no discharge, lids normal Ears: TMs intact and clear, ear canals clear, no drainage, grossly hearing normal. Nose: Nares patent, no discharge, no inflammation, no sinus tenderness. Mouth: Oropharynx without lesions or masses, good dentition, MMM. Neck: Supple, trachea midline, no enlargement of anterior or posterior cervical nodes, no thyroid masses or goiter palpable. Cardio: Regular rate and rhythm, s1 and s2 normal, no murmur appreciated. Resp: Clear to auscultation bilaterally anteriorly and posteriorly, no rhonchi, rales, wheezing or rubs Musculoskeletal: No deformity, tender to palpation over the anterior thighs, grossly normal range of motion, muscle strength strong and equal, peripheral pulse strong, no edema, no cyanosis, normal gait and station Course Course Emergency Course: Portions of this record may have been created with voice recognition software. Level of Care: Express Care Visit Vital Signs Vital signs: Vital signs reviewed Medical Decision Making MDM Narrative Medical decision making narrative: At the time of visit patient is resting comfortably on the exam table. I suspect patient is having muscle cramping is due to unknown etiology. Likely due to overuse however can also be due to electrolyte balance. Patient reports that his symptoms are improving. Urine was checked and his specific gravity was 1.020. He did have a trace of protein in a trace of blood in his urine. Recommend follow-up with his PCP this week and if his symptoms worsen go to the emergency room for further evaluation. Patient voiced understanding to the discharge ins
[2023-05-27 10:00] VITALS: BP 118/71; PULSE 89; RESP 16; TEMP 37.2; O2SAT 99
== END 2023-05-27 10:36 | disposition home or self-care (01) ==
PROVIDERS: Emergency Provider Nurse Practitioner Family
DX: R25.2 Cramp and spasm (principal); F17.200 Nicotine dependence, unspecified, uncomplicated
CPT/HCPCS: 81003; 99213; G0463

== ENCOUNTER 2023-09-22 10:54 | Emergency (ER) | payer OTHER, MEDICARE, MEDICAID, SELFPAY ==
--- NOTE | ~2023-09-22 | XR_ITS ---
EXAMINATION: XR thoracic spine 2V DATE: 09/22/2023 11:55 INDICATION: Back pain TECHNIQUE: AP, lateral and lateral swimmer's views of the thoracic spine were obtained. COMPARISON: 03/01/2020 FINDINGS: Bone alignment is normal. There is no fracture. The vertebral body heights and intervertebr al disc spaces are maintained. IMPRESSION: 1. No acute osseous abnormality. Reviewed, dictated and finalized at location F. SURVEYOR
[2023-09-22 11:17] VITALS: BP 132/68; PULSE 76; RESP 16; TEMP 36.8; O2SAT 100
--- NOTE | 2023-09-22 11:37 | ED.GENADULT ---
HPI - General Adult General Chief complaint: Back Pain/Injury Stated complaint: Back Pain Time Seen by Provider: 09/22/23 11:37 Source: patient Mode of arrival: ambulatory Limitations: no limitations History of Present Illness HPI narrative: 23-year-old male patient presents to the [facility] with complaints of mid back pain for about 3 weeks now. 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 Patient states he has been dealing with on and off back pain for about 3 weeks but recently has gotten significantly worse. Patient states he has tried taking some Tylenol and ibuprofen as well as using a Biofreeze to his back. Patient denies any numbness or tingling down the legs but at times does have some numbness to his hands. Denies any issues with bowel or bladder control. Denies any saddle anesthesia. Related Data Allergies Allergy/AdvReac Type Severity Reaction Status Date / Time No Known Allergies Allergy Verified 09/22/23 10:58 Review of Systems Review of Systems: CONSTITUTIONAL: Denies fever, chills, or sweats. EYES: Denies visual changes, redness, or discharge. ENT: Denies rhinorrhea, congestion, sore throat, or otalgia. CARDIOVASCULAR: Denies chest pain, palpitations, or edema. RESPIRATORY: Denies cough or dyspnea. GASTROINTESTINAL: Denies abdominal pain, nausea, vomiting, or diarrhea. GENITOURINARY: Denies dysuria or hematuria. SKIN: Denies rash or itching. MUSCULOSKELETAL: Positive mid back pain, denies joint pain, or myalgia. NEUROLOGIC: Denies headache, numbness, or weakness. PSYCHIATRIC: Denies anxiety or depression. [facility] Past Medical History Medical History ADHD Anxiety Depression Previous known suicide attempt Family History Family History Other No active medical problems Social History Social History Smoking status: Current every day smoker Occupation/Education: occupation Gender identity (if verbalized by the patient): Male Comments At the time of my signature I agree with nursing past medical history, surgical, social, and family history. There is no relevant family history pertinent to the presenting complaint. Exam Narrative: GENERAL: Well-appearing, well-nourished, and in no acute distress. HEAD: Normocephalic, atraumatic. EYES: PERRLA and EOMI. ENT: Nares clear, no rhinorrhea or epistaxis. Mucous membranes moist. NECK: Supple, no lymphadenopathy. No surface trauma, no soft tissue or muscle tenderness or spasm noted. Trachea midline. No subq emphysema or crepitus. No bony tenderness, step-offs or deformity to firm Palpation at posterior midline. FROM without limitation or pain, normal flexion, extension,Lateral bending, rotation, and axial load. CHEST: Clear to auscultation. No respiratory distress. HEART: Regular rate and rhythm. No murmur heard. Normal peripheral pulses. ABDOMEN: Soft, nontender, nondistended, normal active bowel sounds. EXTREMITIES: Normal range of motion. No edema. BACK: Patient is able to ambulated without assistance. Pt is seated on the stretcher in no obvious distress. No surface trauma noted. muscle tenderness to Palpation at about the 10 area. No spasm or mass. No step-offs or deformity noted to the cervical, thoracic or lumbar spine to firm Palpation at the midline. No CVA tenderness to percussion. No saddle anesthesia. ROM: able to stand erect. Decreased forward flexion to about 15?, normal extension, pain with left Lateral bending, normal rotation without limitation or complaint of pain. Negative straight leg raise bilaterally SKIN: Warm, dry, no rash. NEURO: No focal deficits. Alert and oriented x3. Course Course Level of Care: Express Care Visit Vital Signs Vital signs: Vital Signs Temperature 36.8 C 09/22/23 11:17 Pulse Rate
== END 2023-09-22 12:32 | disposition home or self-care (01) ==
PROVIDERS: Emergency Provider Nurse Practitioner Family
DX: S29.012A Strain of muscle and tendon of back wall of thorax, initial encounter (principal); X58.XXXA Exposure to other specified factors, initial encounter; F17.200 Nicotine dependence, unspecified, uncomplicated
CPT/HCPCS: 72070; 99213; G0463

== ENCOUNTER 2023-12-03 11:57 | Emergency (ER) | payer MEDICARE, OTHER, MEDICAID, SELFPAY ==
--- NOTE | ~2023-12-03 | XR_ITS ---
Clinical Indication: Cough PA and lateral views of the chest: Comparison: None Findings: The lungs are clear, without evidence of focal consolidation or pleural effusion. Cardiome diastinal silhouette is within normal limits. Bones and soft tissues are unremarkable. Impression: Normal chest. Reviewed, dictated and finalized at location . Impression: Normal chest.
[2023-12-03 12:07] VITALS: BP 108/62; PULSE 72; RESP 16; TEMP 36.7; O2SAT 99
--- NOTE | 2023-12-03 12:16 | ED.URI ---
HPI - URI/Sore Throat General Chief Complaint: Upper Respiratory Infection Stated Complaint: cough Time Seen by Provider: 12/03/23 12:20 Source: patient Mode of arrival: ambulatory Limitations: no limitations History of Present Illness HPI Narrative: Sahil is a 23-year-old male patient presenting to the clinic today for multiple complaints. He reports he has a productive cough for the past 2 weeks with brown and green phlegm, does have some mild shortness of breath related to this. Also is concerned that there may be a rock in his left ear, is concerned about the left upper eye being puffy and twitching, and is also concerned about a periumbilical hernia. He has had 2 periumbilical hernia repairs prior and states that he is having a little bit of discomfort over the periumbilical hernia at this time. No changes in stool. When he bears down he does have some bulging of the paraumbilical hernia. He is a current smoker. 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 Gets exposed to a lot of mold, cat pee, and dirt. MD elicited complaint: cough and other (Shortness of breath, periumbilical hernia, left eye twitching, possible foreign body in left ear, and productive cough) Related Data Allergies Allergy/AdvReac Type Severity Reaction Status Date / Time No Known Allergies Allergy Verified 12/03/23 12:01 Review of Systems Review of Systems: Pertinent positives per HPI. Patient denies any fever, chills, rash, headache, visual changes, dizziness, chest pain, palpitations, nausea, vomiting, diarrhea, constipation, or any urinary issues. [facility] Past Medical History Medical History ADHD Anxiety Depression Previous known suicide attempt Family History Family History Other No active medical problems Social History Social History Smoking status: Current every day smoker Occupation/Education: occupation Gender identity (if verbalized by the patient): Male Comments At the time of my signature, I reviewed and agree with the nursing past medical, surgical, social, and family history. There is no relevant family history pertinent to the patient complaint. Exam Narrative: General: Well-developed, well nourished, in no apparent distress Head: Normocephalic, atraumatic Eyes: Pupils equally round and reactive to light bilaterally, EOM intact, sclera and conjunctive clear, no discharge, lids normal Ears: TMs intact and clear, ear canals clear, no foreign body noted in the left ear canal, no drainage, grossly hearing normal. Nose: Nares patent, no discharge, no inflammation, no sinus tenderness. Mouth: Oral pharynx without lesions or masses, good dentition, MMM. Neck: Supple, trachea midline, no enlargement of anterior or posterior cervical nodes, no thyroid masses or goiter palpable. Cardio: Regular rate and rhythm, s1 and s2 normal, no murmur appreciated. Resp: Clear to auscultation bilaterally, no rhonchi, rales, wheezing or rubs Abdomen: Soft, pliable, bowel sounds present in all quadrants, reducible periumbilical hernia with mild bulging, mild tenderness to palpation, no organomegly, no CVAT tenderness. Course Course Emergency Course: Portions of this record may have been created with voice recognition software. Level of Care: Express Care Visit Vital Signs Vital signs: Vital Signs Temperature 36.7 C 12/03/23 12:07 Pulse Rate 72 12/03/23 12:07 Respiratory Rate 16 12/03/23 12:07 Blood Pressure 108/62 12/03/23 12:07 Pulse Oximetry 99 12/03/23 12:07 Oxygen Delivery Room Air 12/03/23 12:07 Temperature 36.7 C 12/03/23 12:07 Pulse Rate 72 12/03/23 12:07 Respiratory Rate 16 12/03/23 12:07 Blood Pressure 108/62 12/03/23 12:07 Pulse Oximetry 99 12/03/23 12:07 Oxyg
== END 2023-12-03 13:03 | disposition home or self-care (01) ==
PROVIDERS: Emergency Provider Nurse Practitioner Family
DX: R51.9 Headache, unspecified (principal); K42.9 Umbilical hernia without obstruction or gangrene; F17.200 Nicotine dependence, unspecified, uncomplicated
CPT/HCPCS: 71046; 99213; G0463

== ENCOUNTER 2023-12-11 15:20 | Outpatient (CLI) | payer MEDICARE, OTHER, MEDICAID, SELFPAY ==
--- NOTE | ~2023-12-11 | CT_ITS ---
Non-contrast CT scan of the Abdomen Clinical indication: Ventral hernia Technique: 2.5 mm axial scans were obtained through the abdomen without intravenous or oral contrast . Dose reduction technique was used on this scan by utilizing automated exposure control and iterativ e reconstruction technique. The dose-length product (DLP) was 163.39 mGy-cm. Findings: Images through the lung bases reveal 3.1 cm mildly lobular probable pericardial cyst along the right side of the heart. There is no evidence of renal or ureteral calculi. The kidneys and the ureters are nondilated. The liver, spleen, pancreas, gallbladder, and adrenals appear normal. There is no aortic aneurysm. There is a small ventral fat-containing hernia superior to the umbilicus. Visualized bowel loops are unremarkable. No ascites. Impression: Small ventral fat-containing hernia, superior to the umbilicus. Reviewed, dictated and finalized at [facility]. Impression: Small ventral fat-containing hernia, superior to the umbilicus.
== END 2023-12-11 15:21 | disposition home or self-care (01) ==
PROVIDERS: Visit Provider Surgery
DX: K43.9 Ventral hernia without obstruction or gangrene (principal)
CPT/HCPCS: 74150

== ENCOUNTER 2023-12-20 01:12 | Day surgery (SDC) | payer MEDICARE, OTHER, SELFPAY ==
[2023-12-17 14:40] VITALS: BMI 22.6
--- NOTE | 2023-12-17 14:41 | PC.NURSE ---
Report to the Outpatient Waiting Room, entrance under the green pavilion located off [facility], at time _1200_ on date _[id number]_. Planned Procedure Time: _2pm_. Time changes happen often and if your time is changed the preop area will call you the afternoon before. - You and your visitor will be asked to self-screen and do not enter if you have any COVID symptoms. - A mask is optional within the hospital at this time. Patients may have clear liquids (water, carbonated beverages, clear teas, apple juice) until 3 hours prior to surgery with a maximum of 20 ounces. - No food from midnight until time of surgery Take the following medications with a SIP of water the morning of surgery: ___None DO NOT STOP ANY OF YOUR OTHER PRESCRIPTION MEDICATIONS PRIOR TO SURGERY ?EXCEPT THE FOLLOWING Medications to discontinue per physician None Date to take last dose Please no make-up, nail japanese, hairspray, perfume, deodorant, or body powder the day of surgery. No jewelry (including any body piercings) or valuables the day of surgery, leave them at home. Please take a shower or bath the night before, or the morning of, surgery with an antibacterial soap. Wear comfortable, loose fitting clothing. - Jewelry must be removed prior to entering the operating room. Rings and piercings that are not removed may be cut off. - The hospital will not accept responsibility for valuables. - Please leave all valuables, including medications, at home the day of surgery. If you are going home after surgery, a licensed over the road driver must drive you home. - NO public transportation without another adult if you receive anesthesia. - We recommend that an adult stay with you for 24 hours following discharge. - We also recommend that you do not drive, make important decision, drink alcoholic beverages, or take any drugs that were not prescribed by your health care provider for at least 24 hours after your discharge time. Follow any additional instructions given to you from your surgeon. If you or anyone in your household have experienced Covid symptoms in the past week, please notify your surgeon or the nurse liaison at the phone number below for possible testing. Telephone instructions given to __Kane____and asked if any additional questions and then verbalized understanding. Patient advised to call surgeon office or pre surgery nurse liaison [phone] if any additional questions.
--- NOTE | 2023-12-19 12:56 | P.PNAN_ITS ---
Anes - Initial Pre Proc Eval Procedure: Operation Date: 12/20/23 14:00 Proposed Procedures p Robotic Assisted Supra Umbilical Ventral Hernia Repair with Mesh - Juanita Sepulveda MD Date/Time: 12/19/23 12:56 Surgeon: Juanita Sepulveda MD Pre Op Diagnosis: ventral hernia Patient Data Age: 23 Gender: M Height: 1.68 m Weight: 63.6 kg Allergies Allergy/AdvReac Type Severity Reaction Status Date / Time No Known Allergies Allergy Verified 12/20/23 13:16 Home Medications Medication Instructions Recorded Confirmed Type docusate sodium 100 mg capsule 100 mg PO BID #30 caps 12/20/23 Rx (Colace) hydrocodone 5 mg-acetaminophen 325 1 tablet PO Q6H PRN pain #30 tabs 12/20/23 Rx mg tablet Laboratory Tests 12/18/23 16:12 Blood Type A Positive Antibody Screen Negative Patient hx anesthesia problems: none Family hx anesthesia problems: none Results Review: All pre-operative results and documents have been reviewed as part of the pre- operative evaluation. [facility] Past Medical History Medical History ADHD Anxiety Depression Previous known suicide attempt Family History Family History Other No active medical problems Social History Social History (Updated 12/24/23 @ 18:48 by Vaibhav Modi DO) Smoking status: Current every day smoker Tobacco type: e-cigarettes/vaping Substance use: current Substance use type: marijuana Other substance usage details: Daily 3-4x Living arrangements: with family Occupation/Education: occupation Gender identity (if verbalized by the patient): Male Spiritual care concerns: No Anes - Eval Final PreProcedure Day of Procedure 12/19/23 12:56 Patient weight: normal Heart: regular rate and rhythm Lungs: clear to auscultation Airway: Mallampati scale class II Neurological: alert and oriented Last oral intake: >/= 8 hours ASA classification: III Emergent: no Anesthetic plan: proceed Anesthesia type and monitoring: general ETT and standard monitoring Results Review: All pre-operative results and documents have been reviewed as part of the pre- operative evaluation. Informed Consent: The patient's anesthetic plan and its attendant risks and benefits were discussed with the patient/family/POA. Questions were solicited and answers provided to the satisfaction of the patient/family/POA.
[2023-12-20] VITALS (10 sets, daily range): BP systolic 112–138; BP diastolic 55–93; PULSE 53–75; RESP 12–20; TEMP 36.5–36.6; O2SAT 99–100
--- NOTE | 2023-12-20 11:22 | WPDHPUPDATE1 ---
History and Physical Update Update Date/Time: 12/20/23 11:22 History and Physical has been reviewed, including an updated exam of the patient. There are NO changes in the patient's condition. Risks, benefits, and alternatives have been discussed and questions answered. Patient agrees to proceed with procedure. will proceed with robotic assisted recurrent ventral hernia repair with mesh
[2023-12-20] MEDS: KETOROLAC 15 MG/ML VIAL (*BKC) IV PUSH (12:40)
[2023-12-20] MEDS: LACTATED RINGERS 1,000 ML 30 ML IV CONT ×2 (12:40→15:36)
[2023-12-20] MEDS: ACETAMINOPHEN 500 MG TABLET 1000 MG PO (12:40)
[2023-12-20] MEDS: ceFAZolin 2 GM/D5W 50 ML 2 GM/50 ML BAG IVPB (13:49)
[2023-12-20] MEDS: BUPIVACAINE/EPINEPHRINE 0.5% 10 ML VIAL 30 ML INFILTRATE (14:18)
--- NOTE | 2023-12-20 15:20 | W.PM.PROC2 ---
Procedure Note - Detailed Date of Procedure 12/20/23 Pre-op Diagnosis recurrent incarcerated ventral hernia with defect measuring 3 cm Post-op Diagnosis Same Procedure Performed Robotic assisted repair recurrent incarcerated incisional hernia with mesh Surgeon Juanita Sepulveda MD Anesthesia General Indications 23-year-old male presenting with recurrent incarcerated incisional hernia Findings recurrent incarcerated periumbilical or hernia measuring approximately 3 cm Description of Procedure The patient was taken the operating room placed in the supine position. After adequate induction of general anesthesia, the patient was prepped and draped in normal sterile fashion. A time-out was then done to verify the patient's identity as well as the procedure being performed. I began by making a 8 mm incision in the left upper quadrant. Through this, a Veress needle was placed into the peritoneal cavity and CO2 gas was insufflated. After adequate pneumoperitoneum was achieved, a 8 mm optiview trocar was placed through this incision. I then placed the laparoscope through this trocar site and under direct visualization I placed a 8 mm port in the left mid abdomen as well as an additional 8 mm port in the left lower abdomen. The robot was then docked to the 3 port sites. I then went to the robotic console. I began by identifying the hernia. A moderate-sized incarcerated hernia was noted in the periumbilical region. Using graspers, I was able to reduce this hernia. The hernia was noted to contain a large amount of preperitoneal fat and omentum. There was also noted to be a bunched up piece of mesh that had pulled from this recurrent hernia. The mesh was noted to be quite adherent to the underlying omentum and preperitoneal fat. I did remove the mesh from the anterior abdominal wall as well as the underlying tissue. Once reduced, I also reduced and dissected out the hernia sac. I then closed the approximately 3 cm defect with 0 strata fix suture. I then placed a 10x[address] mesh into the abdominal cavity. The positional stitch was placed in the middle of the mesh and brought up centering the mesh over the defect. Once this was done, I used 2 0 V lock suture x 2 to circumferentially suture the mesh to the abdominal. Once the mesh was completely sutured in, I was happy with our tension-free repair. The mesh was noted to have good overlap of the defect. I then removed the old mesh by placing it in an endo-pouch and removing it through a port site. At this point, the robot was undocked and all ports were removed. All port sites were then closed with 4 O Monocryl subcuticular suture. The patient tolerated the procedure well, is extubated in the operating room postoperative, OB transferred to the recovery room in stable condition. Implants 10 x 15 cm Ventralight mesh Estimated Blood Loss 10 Drains No Packing No Pathology None sent Complications No immediate complications Condition Stable Disposition PACU [facility] Billing Surgery - Charge Forward: Surgery Billing
[2023-12-20] MEDS: fentaNYL CITRATE INJ (*CRX) 100 MCG/2 ML VIAL 25 MCG IV PUSH ×8 (16:11→16:44)
[2023-12-20] MEDS: HYDROmorphone HCL INJ (*CRX) 1 MG/ML SYR 0.5 MG IV PUSH ×2 (16:24→16:40)
[2023-12-20] MEDS: oxyCODONE HCL (*CRX) 5 MG TAB IR PO (17:03)
--- NOTE | 2023-12-20 17:59 | SUR.PHASEII ---
1740 - abdominal placed on pt
== END 2023-12-20 17:48 | disposition home or self-care (01) ==
PROVIDERS: Visit Provider Surgery
PROC: (CPT 49616; principal; 2023-12-20 14:00)
DX: K43.0 Incisional hernia with obstruction, without gangrene (principal); F90.9 Attention-deficit hyperactivity disorder, unspecified type; F41.9 Anxiety disorder, unspecified; F32.A Depression, unspecified; F17.290 Nicotine dependence, other tobacco product, uncomplicated; F12.90 Cannabis use, unspecified, uncomplicated; Z79.891 Long term (current) use of opiate analgesic
CPT/HCPCS: 49616; 49623; S2900; 36415; 86850; 86900; 86901; A9270; C1781; J0690; J1100; J1170; J1720; J1885; J2250; J2405; J2704; J3010; J7030; J7120

== ENCOUNTER 2024-01-26 16:19 | Emergency (ER) | payer MEDICARE, OTHER, MEDICAID, SELFPAY ==
[2024-01-26 16:44] VITALS: BP 124/55; PULSE 99; RESP 16; TEMP 37.4; O2SAT 98
--- NOTE | 2024-01-26 17:21 | ED.MALEGU ---
HPI - Male Genitourinary General Chief complaint: Urogenital-Male Stated complaint: Urinary Problems Time Seen by Provider: 01/26/24 17:21 Source: patient, RN notes reviewed and old records reviewed Mode of arrival: ambulatory Limitations: no limitations History of Present Illness HPI Narrative: 23-year-old male presents to the [facility] with burning after urination for 1 year. For the last 5 months he has also had some cramping in his left testicle Denies any significant pain currently. Denies any chances of STDs. Did have abdominal surgery early December, has not had follow-up. Denies any abdominal pain. No CVA tenderness. Denies fevers Denies any to sticking her pain or swelling currently. Denies penile discharge Related Data Home Medications Medication Instructions Recorded Confirmed No Home Medications 01/26/24 01/26/24 Allergies Allergy/AdvReac Type Severity Reaction Status Date / Time No Known Allergies Allergy Verified 01/26/24 16:54 Review of Systems Review of Systems: All systems reviewed & are unremarkable except as noted in HPI and below Constitutional: Constitutional: Reports no additional constitutional complaints Eyes: Eyes: Reports no additional eye complaints ENT: Reports system reviewed and no additional complaints, except as documented Cardiovascular: Cardiovascular: Reports no additional cardiovascular complaints, Denies chest pain and Denies dyspnea Respiratory: Respiratory: Reports no additional respiratory complaints, Denies chest congestion, Denies cough and Denies dyspnea Gastrointestinal: Gastrointestinal: Reports no additional gastrointestinal complaints, Denies abdominal pain, Denies nausea and Denies vomiting Genitourinary: Genitourinary: Reports as per HPI Musculoskeletal: Musculoskeletal: Reports no additional musculoskeletal complaints Integumentary/Breasts: Skin/Breast: Reports system reviewed and no additional complaints, except as docu Neurologic: Reports system reviewed and no additional complaints, except as documented Psychiatric: Psychiatric: Reports no additional psychiatric complaints Allergic/Immunologic: Allergic/Immunologic: Reports no additional allergic/immunologic complaints [facility] Past Medical History Medical History (Updated 01/26/24 @ 18:16 by Eufemia Aguilar APRN) ADHD Anxiety Depression Previous known suicide attempt Surgical History Surgical History (Updated 01/26/24 @ 18:16 by Eufemia Aguilar APRN) H/O ventral hernia repair 12/2023 Family History Family History Other No active medical problems Social History Social History Smoking status: Current every day smoker Tobacco type: e-cigarettes/vaping Substance use: current Substance use type: marijuana Other substance usage details: Daily 3-4x Living arrangements: with family Occupation/Education: occupation Gender identity (if verbalized by the patient): Male Spiritual care concerns: No Comments At the time of my signature, I reviewed and agree with the nursing past medical, surgical, social, and family history. There is no relevant family history pertinent to the patient complaint. Exam Const: General: cooperative, healthy appearing, comfortable, no acute distress, well developed, alert and well nourished Nutritional Appearance: well nourished Orientation/consciousness: patient oriented x3 Limitations: no limitations HENMT: Head: normal to inspection Ears: hearing grossly normal bilaterally and external ears normal Face/Nose/Sinus: Normal external nose present, Normal nares present, Normal nasal mucous membranes and turbinates present, normal facial exam and face symmetric Face and sinus: normal facial exam and face symmetric Eyes: General: appearance normal, both eyes and all related structures Alignment and Position: alignment normal Periorbital:
== END 2024-01-26 17:45 | disposition home or self-care (01) ==
PROVIDERS: Emergency Provider Nurse Practitioner
DX: R30.0 Dysuria (principal); F17.290 Nicotine dependence, other tobacco product, uncomplicated; F12.90 Cannabis use, unspecified, uncomplicated
CPT/HCPCS: 81003; 87086; 99213; G0463

== ENCOUNTER 2024-01-27 12:14 | Emergency (ER) | payer MEDICARE, OTHER, MEDICAID, SELFPAY ==
--- NOTE | ~2024-01-27 | US_ITS ---
Testicular ultrasound with doppler. Indication: Left testicular pain. Technique: Real-time sonography the scrotum was performed. Color flow Doppler and Doppler spectral an alysis were performed. Findings: The testes are homogeneous in echotexture bilaterally. There is no evidence of an intrates ticular mass. The right testis measures 4.9 x 2.1 x 2.8 cm and the left 4.7 x 2.2 x 2.9 cm. There is color-flow seen to both testes. Arterial and venous spectral waveforms are seen in both testes. There is no sonographic evidence of torsion. The head of the epididymis is visualized bilaterally and is within normal limits. Impression: Unremarkable exam. No evidence of torsion. Reviewed, dictated and finalized at location . Impression: Unremarkable exam. No evidence of torsion.
[2024-01-27 12:15] VITALS: BP 116/68; PULSE 104; RESP 18; TEMP 36.7; O2SAT 98
[2024-01-27 14:22] LABS: Appearance Urine Clear (Clear); Bilirubin Urine Negative (Negative); Blood Urine Negative (Negative); Color Urine Yellow (Yellow); Glucose Urine UA Negative (Negative); Ketones Urine Trace mg/dL (Negative); Leukocyte Esterase Ur Negative LEU/UL (Negative); Nitrate Urine Negative (Negative); Protein Urine Negative (Negative); Specific Grav Ur 1.026 (1.001-1.035)
[2024-01-27 14:23] LABS: Add Urine Microscopic? NO
--- NOTE | 2024-01-27 15:17 | ED.MALEGU ---
HPI - Male Genitourinary General Chief complaint: Urogenital-Male Stated complaint: testicle pain Time Seen by Provider: 01/27/24 13:24 History of Present Illness HPI Narrative: Patient is a 23-year-old male who presents ER with left-sided testicular pain. Intermittent over the last couple of days. Was seen at an urgent care yesterday and told to come to the ER if he had recurrent pain. No urinary frequency urgency. No dysuria. No concern for STI. Not sexually active for 8 months. No trauma. Related Data Allergies Allergy/AdvReac Type Severity Reaction Status Date / Time No Known Allergies Allergy Verified 01/26/24 16:54 Review of Systems Constitutional: Constitutional: Reports no additional constitutional complaints Gastrointestinal: Gastrointestinal: Reports no additional gastrointestinal complaints Genitourinary: Genitourinary: Denies hematuria, Denies dysuria, Denies penile discharge, Reports testicular pain and Denies urinary frequency PMFSH Past Medical History Medical History (Updated 01/27/24 @ 15:18 by Wesley Barbosa MD) ADHD Anxiety Depression Previous known suicide attempt Surgical History Surgical History (Updated 01/26/24 @ 18:16 by Eufemia Aguilar APRN) H/O ventral hernia repair 12/2023 Family History Family History Other No active medical problems Social History Social History Smoking status: Current every day smoker Tobacco type: e-cigarettes/vaping Substance use: current Substance use type: marijuana Other substance usage details: Daily 3-4x Living arrangements: with family Occupation/Education: occupation Gender identity (if verbalized by the patient): Male Spiritual care concerns: No Exam Narrative: GENERAL: Well-appearing, well-nourished, and in no acute distress. HEAD: Normocephalic, atraumatic. ENT: Mucous membranes moist. : Normal-appearing external genitalia with mild tenderness over spermatic cord on left side. No swelling. EXTREMITIES: Normal range of motion. No edema. NEURO: Alert and oriented x3. PSYCH: Normal mood and affect. Course Course Emergency Course: Patient informed of results. Resting comfortably. Discussed treating with anti-inflammatories and supportive underwear. Vital Signs Vital signs: Vital Signs Temperature 98.0 F 01/27/24 12:15 Pulse Rate 104 H 01/27/24 12:15 Respiratory Rate 18 01/27/24 12:15 Blood Pressure 116/68 01/27/24 12:15 Pulse Oximetry 98 01/27/24 12:15 Oxygen Delivery Room Air 01/27/24 12:15 Temperature 98.0 F 01/27/24 12:15 Pulse Rate 104 H 01/27/24 12:15 Respiratory Rate 18 01/27/24 12:15 Blood Pressure 116/68 01/27/24 12:15 Pulse Oximetry 98 01/27/24 12:15 Oxygen Delivery Room Air 01/27/24 12:15 MDM - Male Genitourinary Lab Data Attestation: I reviewed the patient's lab results. Labs: Lab Results 01/27/24 Range/Units 14:15 Urine Color Yellow (Yellow) Urine Appearance Clear (Clear) Urine pH 6.0 (5.0-9.0) Ur Specific [place] 1.026 (1.001-1.035) Urine Protein Negative (Negative) mg/dL Urine Glucose (UA) Negative (Negative) mg/dL Urine Ketones Trace H (Negative) mg/dL Ur Blood (Man) Negative (Negative) Urine Nitrate Negative (Negative) Urine Bilirubin Negative (Negative) Urine Urobilinogen 1.0 (<2.0) mg/dL Leukocyte Esterase Rfl Negative (Negative) LISBET/UL Urine Characteristics Clear Imaging Data Radiologist's impression: ITS Impressions Scrotum Ultrasound 01/27/24 14:28 Impression: Unremarkable exam. No evidence of torsion. Discharge Plan Discharge Clinical Impression: Left testicular pain Patient Disposition: Home, Self-Care Condition: Stable Instructions: Test
[2024-01-27 15:28] VITALS: BP 115/69; PULSE 76; RESP 16; TEMP 36.6; O2SAT 99
== END 2024-01-27 15:33 | disposition home or self-care (01) ==
PROVIDERS: Emergency Provider Emergency Medicine
DX: N50.812 Left testicular pain (principal); F17.290 Nicotine dependence, other tobacco product, uncomplicated; F90.9 Attention-deficit hyperactivity disorder, unspecified type; F41.9 Anxiety disorder, unspecified; F32.A Depression, unspecified
CPT/HCPCS: 76870; 81003; 93976; 99284

== ENCOUNTER 2024-02-08 17:27 | Emergency (ER) | payer MEDICARE, OTHER, MEDICAID, SELFPAY ==
--- NOTE | ~2024-02-08 | XR_ITS ---
XR finger 4th RT min 2V Ordering provider: Eufemia Cifuentes NP History: . smash injury 2 days ago . Comparison: None. FINDINGS: BONES: No acute fracture or dislocation. Small bony fragment seen near to the tip of the distal phala nx of the fourth finger suggestive of a chip fracture. Clinical evaluation for tenderness in the area is advised. JOINT SPACES: Normal. SOFT TISSUES: Normal. IMPRESSION: Small bony fragment seen near to the tip of the distal phalanx of the fourth finger suggestive of a c hip fracture. Reviewed, dictated and finalized at location A. IMPRESSION: Small bony fragment seen near to the tip of the distal phalanx of the fourth fi nger suggestive of a chip fracture.
--- NOTE | 2024-02-08 17:34 | ED.UPPEXIN ---
HPI - Extremity Injury (Upper) General Chief Complaint: Extremity Injury, Upper Stated Complaint: RIght Finger Injury Time Seen by Provider: 02/08/24 17:49 Source: patient and RN notes reviewed Mode of arrival: ambulatory Limitations: no limitations History of Present Illness HPI narrative: 23-year-old male presents with concern for injury to the right 4th digit 2 days ago. Reports he smashed it. Reports the nail has been hanging off and he has had green drainage from under the nail. 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 SKIN: Reports injury to the nail bed of the 4th right finger MUSCULOSKELETAL: Reports pain to the distal 4th right digit NEUROLOGIC: Denies numbness, weakness All systems reviewed & are unremarkable except as noted in HPI and below PMFSH Past Medical History Medical History (Updated 02/08/24 @ 18:30 by Eufemia Cifuentes NP) ADHD Anxiety Depression Previous known suicide attempt Surgical History Surgical History (Updated 01/26/24 @ 18:16 by Eufemia Aguilar APRN) H/O ventral hernia repair 12/2023 Family History Family History Other No active medical problems Social History Social History Smoking status: Current every day smoker Tobacco type: e-cigarettes/vaping Substance use: current Substance use type: marijuana Other substance usage details: Daily 3-4x Living arrangements: with family Occupation/Education: occupation Gender identity (if verbalized by the patient): Male Spiritual care concerns: No Comments At time of signature, agree with nursing past medical, surgical, social and family history. There is no relevant family history pertinent to the presenting complaint Exam Narrative: GENERAL: Well-appearing, well-nourished, and in no acute distress. HEAD: Normocephalic, atraumatic. EYES: PERRLA, conjunctivae clear NECK: Supple. CHEST: Speaks in full sentences. No respiratory distress. HEART: Regular rate and rhythm. Normal and equal peripheral pulses. EXTREMITIES: [Xxx] has normal strength and sensation, normal range of motion. No edema or ecchymosis. 5/5 strength with [xxx] flexion and extension. Normal sensation with sensitivity to light touch and pain. No point tenderness. No open wounds, no skin tenting, no devitalized tissue or atrophy, no trophic changes, no obvious deformity, alignment normal, nearby joints and structures intact. Distal pulses palpable and equal bilaterally, skin warm, dry, pink. Capillary refill less than 3 seconds. SKIN: Warm, dry, no rash. NEURO: Alert and oriented x3. PSYCH: Normal mood and affect Course Course Emergency Course: Patient's nail bed is nearly completely avulsed from the finger including the nail plate. Patient would like to have the nail removed. Patient is aware of diagnosis, understands and agrees to treatment plan. Anticipatory guidance given. Patient agrees to follow-up as directed and is aware of reasons to seek care at the emergency department. Portions of this record may have been created with voice recognition software Level of Care: Express Care Visit Vital Signs Vital signs: Reviewed. Procedures Nerve Block Nerve Block 1: Nerve block date: 02/08/24 Nerve block time: 17:59 Local Anesthetic: lidocaine 1% Amount of anesthesia used (mL): 5 Side: right Nerve Blocks: digital Other Procedure Procedure 1: Other Procedure: After doing a digital block, hemostat used to remove nearly completely avulsed nail bed without complication. Patient placed o
[2024-02-08 17:38] VITALS: BP 111/86; PULSE 83; RESP 16; TEMP 37.7; O2SAT 97
[2024-02-08] MEDS: LIDOCAINE HCL 1% LOCAL INJ 2 ML AMPUL 8 ML INFILTRATE (18:00)
== END 2024-02-08 18:35 | disposition home or self-care (01) ==
PROVIDERS: Emergency Provider Nurse Practitioner
DX: S62.634A Displaced fracture of distal phalanx of right ring finger, initial encounter for closed fracture (principal); X58.XXXA Exposure to other specified factors, initial encounter; Y99.0 Civilian activity done for income or pay; F17.290 Nicotine dependence, other tobacco product, uncomplicated; F12.90 Cannabis use, unspecified, uncomplicated
CPT/HCPCS: 11730; 73140; 99213; G0463

== ENCOUNTER 2024-04-01 12:08 | Emergency (ER) | payer OTHER, SELFPAY ==
[2024-04-01 12:19] VITALS: BP 124/68; PULSE 78; RESP 16; TEMP 37.1; O2SAT 99
--- NOTE | 2024-04-01 12:26 | ED.URI ---
HPI - URI/Sore Throat General Chief Complaint: Upper Respiratory Infection Stated Complaint: Nose Bleed/Sore Throat Time Seen by Provider: 04/01/24 12:20 History of Present Illness HPI Narrative: Patient presents with complaints of runny nose and sore throat along with generalized weakness for 2 days. He reports that he has had some bleeding when he blows his nose today. He has not been taking any medications for his symptoms. He has been continuing to go to work despite being sick. He is agreeable to being tested for COVID and flu, he is insistent upon being tested for strep throat. He denies any fever, chills, sweats. Denies headache. Denies body aches. Related Data Home Medications Medication Instructions Recorded Confirmed No Home Medications 04/01/24 04/01/24 Allergies Allergy/AdvReac Type Severity Reaction Status Date / Time No Known Allergies Allergy Verified 04/01/24 12:11 Review of Systems Review of Systems: All systems reviewed & are unremarkable except as noted in HPI and below Constitutional: Constitutional: Reports no additional constitutional complaints ENT: Reports system reviewed and no additional complaints, except as documented, Reports as per HPI, Reports nasal congestion, Reports nasal discharge and Reports sore throat Cardiovascular: Cardiovascular: Reports no additional cardiovascular complaints Respiratory: Respiratory: Reports as per HPI and Reports no additional respiratory complaints Gastrointestinal: Gastrointestinal: Reports no additional gastrointestinal complaints Musculoskeletal: Musculoskeletal: Reports no additional musculoskeletal complaints and Reports as per HPI Neurologic: Reports system reviewed and no additional complaints, except as documented and Reports as per HPI PMFSH Past Medical History Medical History ADHD Anxiety Depression Previous known suicide attempt Surgical History Surgical History H/O ventral hernia repair 12/2023 Family History Family History Other No active medical problems Social History Social History Smoking status: Current every day smoker Tobacco type: e-cigarettes/vaping Substance use: current Substance use type: marijuana Other substance usage details: Daily 3-4x Living arrangements: with family Occupation/Education: occupation Gender identity (if verbalized by the patient): Male Spiritual care concerns: No Exam Const: General: cooperative, no acute distress, alert and awake Orientation/consciousness: oriented to person, oriented to place and oriented to time HENMT: Head: normal to inspection Resp: Effort & Inspection: normal respiratory effort and able to speak in complete sentences Auscultation: clear to auscultation bilaterally, no crackles, no rales, no rhonchi and no wheezes Cardio: Palpation: normal PMI Rate: regular rate Rhythm: regular rhythm Heart sounds: S1 normal heart sound present and S2 normal heart sound present Neuro: General: oriented to person, oriented to place and oriented to time Cranial nerves: Yes CN's II-XII intact bilaterally Psych: Appearance: grossly normal Thought process: Normal thought process present Insight: Good insight present (Psych) Judgement: Good judgement present (Psych) Course Course Level of Care: Express Care Visit Vital Signs Vital signs: Vital Signs Temperature 98.7 F 04/01/24 12:19 Pulse Rate 78 04/01/24 12:19 Respiratory Rate 16 04/01/24 12:19 Blood Pressure 124/68 04/01/24 12:19 Pulse Oximetry 99 04/01/24 12:19 Oxygen Delivery Room Air 04/01/24 12:19 Temperature 98.7 F 04/01/24 12:19 Pulse Rate 78 04/01/24 12:19 Respiratory Rate 16 04/01/24 12:19 Blood Pressure 124/68 04/01/24 12:19 P
[2024-04-01 12:42] LABS: EDSTREPNEGPOS1 Presumptive Negative
[2024-04-01 12:50] LABS: EDINFLUASCREEN Negative; EDINFLUBSCREEN Negative
== END 2024-04-01 12:55 | disposition home or self-care (01) ==
PROVIDERS: Emergency Provider Nurse Practitioner Family
DX: J06.9 Acute upper respiratory infection, unspecified (principal); Z20.822 Contact with and (suspected) exposure to COVID-19; F17.290 Nicotine dependence, other tobacco product, uncomplicated; F12.90 Cannabis use, unspecified, uncomplicated
CPT/HCPCS: 87426; 87804; 87880; 99213; G0463